=== PATIENT | male | born 1980 | race Caucasian/White ===

== ENCOUNTER 2024-12-12 10:25 | Outpatient (CLI) | payer BC, SELFPAY ==
--- NOTE | ~2024-12-12 | XR_ITS ---
Cervical Spine: AP, lateral, open-mouth views Clinical History: Pain Findings: The normal lordotic curve is maintained. The vertebral bodies and posterior elements appea r intact. There is mild degenerative disc change at C4-C5. Pre-vertebral soft tissues are unremarkabl e. Impression: Minimal degenerative spondylosis, as above. Reviewed, dictated and finalized at [facility]. Impression: Minimal degenerative spondylosis, as above.
--- NOTE | ~2024-12-12 | XR_ITS ---
Lumbosacral Spine: AP and lateral views Clinical History: Pain Findings: The normal lordotic curve is maintained. No fracture or subluxation. There is moderate dege nerative spurring at L5-S1. There is mild facet arthropathy at the lower lumbar spine. The sacroiliac joints are normally outlined. Impression: Mild degenerative spondylosis overall, as above. Reviewed, dictated and finalized at location . Impression: Mild degenerative spondylosis overall, as above.
== END 2024-12-12 10:26 | disposition home or self-care (01) ==
DX: M47.817 Spondylosis without myelopathy or radiculopathy, lumbosacral region (principal); M99.01 Segmental and somatic dysfunction of cervical region; M99.03 Segmental and somatic dysfunction of lumbar region
CPT/HCPCS: 72040; 72100